=== PATIENT | female | born 1980 | race Two or more races ===

== ENCOUNTER 2017-10-27 08:37 | Outpatient (CLI) ==
[2014-12-10 17:16] VITALS: BMI 27.1
--- NOTE | 2017-10-27 09:25 | US ---
EXAM: Ultrasound abdomen limited HISTORY: Abdominal pain COMPARISON: None TECHNIQUE: Limited ultrasound abdomen right upper quadrant was perform FINDINGS: Visualized portion pancreas appears normal. Portions of the pancreas obscured secondary b owel gas shadowing. Liver normal in size and echogenicity. Main portal vein patent with direction o f flow. Multiple shadowing gallstones. No gallbladder wall thickening or pericholecystic fluid. No biliary duct dilation with common bile duct measuring 0.4 cm. Right kidney measures 0.7 cm in length without hydronephrosis IMPRESSION: Cholelithiasis. No gallbladder wall thickening.
== END 2017-10-27 08:38 | disposition home or self-care (01) ==
LOC: RAD 08:37
PROVIDERS: ATTEND Family Medicine
DX: R10.9 Unspecified abdominal pain (principal)